=== PATIENT | female | born 1955 | race Caucasian/White ===

== ENCOUNTER 2024-04-30 04:35 | Day surgery (SDC) | payer OTHER ==
[2024-04-26 10:36] VITALS: BMI 25.4
[2024-04-30] MEDS ORDERED: BUPIVACAINE HCL/PF 0.5% (5MG/ML) 10 ML VIAL ONE (09:10)
[2024-04-30] MEDS ORDERED: PROPOFOL 20 ML ONE (09:49)
[2024-04-30] MEDS ORDERED: MIDAZOLAM HCL 2 MG/2 ML SINGLE DOSE VIAL ONE ×2 (09:49→11:55)
[2024-04-30] MEDS ORDERED: ROCURONIUM BROMIDE 50 MG/5 ML SYRINGE ONE (09:50)
[2024-04-30] MEDS ORDERED: ONDANSETRON 4 MG/2 ML VIAL IVPUSH PRN (10:08)
[2024-04-30] MEDS: ceFAZolin SODIUM 1 GM VIAL IVPB ONE (10:23)
[2024-04-30] MEDS ORDERED: DEXAMETHASONE SOD PHOSPHATE 4 MG/1 ML VIAL ONE (10:28)
[2024-04-30] MEDS ORDERED: ceFAZolin SODIUM 1 GM VIAL ONE (10:28)
[2024-04-30] MEDS ORDERED: ONDANSETRON 4 MG/2 ML VIAL ONE (10:28)
[2024-04-30] MEDS ORDERED: SUGAMMADEX SODIUM 200 MG/2 ML VIAL ONE (11:22)
[2024-04-30] MEDS: ACETAMINOPHEN 1000 MG/100 ML BAG IVPB ONE (11:49)
[2024-04-30] MEDS: LACTATED RINGERS SOLUTION 1,000 ML IV SCH (11:50)
[2024-04-30] MEDS: MIDAZOLAM HCL 2 MG/2 ML SINGLE DOSE VIAL IVPUSH ONE (11:57)
[2024-04-30] MEDS ORDERED: oxyCODONE HCL 5 MG TABLET ONE (14:47)
[2024-04-30] MEDS: oxyCODONE HCL 5 MG TABLET PO PRN (14:49)
[2024-04-30 15:29] VITALS: BP 122/68; PULSE 78; RESP 16; TEMP 98
== END 2024-04-30 16:10 | disposition home or self-care (01) ==
LOC: JASU-SURG 04:35
PROVIDERS: ATTEND Obstetrics & Gynecology
PROC: 0UT24ZZ Resection of Bilateral Ovaries, Percutaneous Endoscopic Approach (ICD-10-PCS; 2024-04-30)
PROC: 0UT74ZZ Resection of Bilateral Fallopian Tubes, Percutaneous Endoscopic Approach (ICD-10-PCS; principal; 2024-04-30 10:00)
DX: D27.0 Benign neoplasm of right ovary (principal); D27.1 Benign neoplasm of left ovary
CPT/HCPCS: 86850; 86900; 86901; 88108; 88305-TC; 94760; J0131